=== PATIENT | male | born 1950 | race Caucasian/White ===

== ENCOUNTER 2024-06-01 06:42 | Emergency (ER) | payer OTHER, SELFPAY ==
[2024-06-01 06:47] VITALS: BP 139/97; PULSE 103; RESP 18; TEMP 36.7; O2SAT 98; BMI 31.5
[2024-06-01 07:36] LABS: MANUAL DIFF FLAG NO
[2024-06-01 07:44] LABS: Basophils Percent Auto 0.3 % (0-2); Eosinophils Percent Auto 0.2 % (0-4); Hematocrit 47.9 % (42.0-52.0); Hemoglobin 16.6 g/dl (14.0-18.0); Imm Gran Abs Auto 0.04 X10*3/uL (0.00-0.03); Imm Gran Pct Auto 0.4 % (0.0-0.4); Lymphocytes Percent Auto 10.3 % (20-40); Mean Corpuscular HGB Conc 34.7 g/dl (31.0-36.0); Mean Corpuscular Hemoglobin 31.1 pg (27.0-33.0); Mean Corpuscular Volume 89.7 fL (80.0-98.0); Mean Platelet Volume 9.3 fL (9.4-12.4); Monocytes Absolute Auto 0.7 X10*3/uL (0.1-1.2); Monocytes Percent Auto 6.8 % (2-11); Neutrophils Absolute Auto 8.1 x10*3/uL (2.0-8.3); Platelet Count 192 X10*3/uL (160-400); Red Blood Count 5.34 X10*6/uL (4.60-5.80); White Blood Count 9.9 X10*3/uL (4.8-10.8)
[2024-06-01 07:58] LABS: Alanine Aminotransferase 27 U/L (0-40); Albumin Level 4.4 g/dL (3.5-5.0); Alkaline Phosphatase 69 U/L (39-117); Anion Gap 13 (12-20); Aspartate Amino Transferase 22 U/L (5-37); Bilirubin Total 0.5 mg/dL (0.0-1.0); Blood Urea Nitrogen 18 mg/dL (9-16); Calcium 9.3 mg/dL (8.4-10.2); Carbon Dioxide 22 mmol/L (22-29); Chloride 109 mmol/L (96-108); Creatinine Clr Calc Pharmacy 75.8; Estimated Glomerular Filt Rate > 60; Glucose Random 103 mg/dL (60-115); Lipase 31 U/L (8-78); Magnesium 1.9 mg/dL (1.6-2.6); Potassium 3.7 mmol/L (3.3-5.1); Sodium 140 mmol/L (135-145); Total Protein 7.6 g/dL (6.5-8.0)
== END 2024-06-01 13:45 | disposition left against medical advice (07) ==
PROVIDERS: Physician Assistant; Emergency Provider Emergency Medicine
DX: R10.33 Periumbilical pain (principal); Z53.21 Procedure and treatment not carried out due to patient leaving prior to being seen by health care provider
CPT/HCPCS: 36415; 80053; 83690; 83735; 85025; 99202; 99281

== ENCOUNTER 2024-06-01 14:29 | Outpatient (AMB) | payer MEDICARE, OTHER, SELFPAY ==
--- NOTE | 2024-06-01 14:30 | MHC.OFFVIS ---
Vital Signs 06/01/24 14:32 Height 5 ft 6 in Weight 195 lb BMI 31.5 BP 139/97 H Blood Pressure Location Rt brachial Position Sitting Pulse 103 H Intake Visit Reasons: ? Hernia Intake Note: Patient scheduled after being seen at ED. Patient c/o: abdominal pain since Saturday morning. Detail Supervisor Required: No Accompanied by: daughter Emerita Allergies bee pollen [bee stings] Allergy (Verified 06/01/24 14:35) Unknown Penicillins Allergy (Verified 06/01/24 14:35) Unknown zinc Allergy (Verified 06/01/24 14:35) Unknown HPI Comments Details: Patient presents with his daughter. He was seen emergency department with a proximally 2 day history of incarcerated umbilical hernia. He left the ER because of the many our weight. He now presents in the office here and describes umbilical pain and some redness at the site of his longstanding umbilical hernia. Prior to this he was tolerating diet. Having regular bowel habits. Patient was very active. No other antecedent GI issues or complaints. Chart was reviewed and patient evaluate [facility] Medical History (Updated 06/01/24 @ 14:39 by CAMPBELL Grissom) Pneumonia COPD (chronic obstructive pulmonary disease) Neuropathic arthritis Arthritis Hearing aid worn HTN (hypertension) Surgical History (Updated 06/01/24 @ 15:05 by Arjun Hall MD) Previous back surgery Social History (Updated 06/01/24 @ 14:40 by CAMPBELL Grissom) Alcohol intake: former Patient Tobacco Use Status: Former Tobacco user Physical Exam Vital Signs: Last Vital Signs Pulse 103 H 06/01/24 14:32 BP 139/97 H 06/01/24 14:32 BMI result Body Mass Index 31.5 Chest Other: Chest breath sounds bilaterally, HS 1 in 2 GI Other: Patient was examined both supine and standing with Valsalva. Bilateral groin exam negative. Abdomen corpulent, soft, patient has an incarcerated umbilical hernia with some overlying erythema. This is highly probably omentum which is stuck in the hernia. If it were bowel, patient would have much more symptomatic GI issues. Defect measures roughly 3 cm Assessment & Plan Assessment & Plan (1) Incarcerated umbilical hernia: Code(s): K42.0 - Umbilical hernia with obstruction, without gangrene Category: Surgical Plan Explained to him the incarcerated in nature this omentum prompt more urgent surgery then he did not have this. Risks, benefits, and alternatives of open umbilical hernia repair with possible mesh reviewed with the patient and included but not limited to bleeding, infection, recurrence, numbness, pain, scarring, bowel injury and the patient wishes to proceed. Arrangements were made for this ulcerative then later this week if possible. All questions answered. Coding Level of Care Code New Pt Level 5 (02784) Diagnoses Incarcerated umbilical hernia K42.0
[2024-06-01 14:32] VITALS: BP 139/97; PULSE 103; BMI 31.5
--- OUTSIDE RECORDS SUMMARY | 2024-06-01 18:26 | XMS_ITS ---
Author Organization [facility] Address [address] [facility] [place] [address] Care Team Providers Care Hot Bread Baker Name Role Phone Ras Pete Unavailable [phone] ALLERGIES, ADVERSE REACTIONS, ALERTS Substance Code Code System Type Reaction Severity Status Start Date End Date Penicillins RxNorm Drug allergy () 0 MEDICATIONS Medication Code Code System Start Date Stop Date Route Dosage Directions Fill Instructions albuterol sulfate 0 RxNorm inhalation lisinopril 0 RxNorm oral simvastatin 0 RxNorm oral PROBLEMS Problem Name Code Code System Start Date End Date Stat us Essential (primary) hypertension 48119281 [facility] Active Pure hypercholesterolemia, unspecified 66443722 [facility] Active Unspecified asthma 420481672 [facility] A ctive Nasal congestion 15466469 [facility] 01/03/2024 Act morteza Chest pain on breathing 932543674 [facility] 01/03/2024 Active ENCOUNTERS Encounter Diagnosis Code Code System Date Stat us Nasal congestion 51388594 [facility] 01/03/2024 Active Chest pain on breathing 308307326 [facility] 01/03/2024 A ctive IMMUNIZATIONS * None VITAL SIGNS Code Code System Vitals Name Date Value and Un its 8462-4 [facility] Blood Pressure-Diastolic 01/03/2024 85 mmHg 8480-6 [facility] Blood Pressure-Systolic 01/03/2024 1 33 mmHg 8867-4 [facility] Heart Rate 01/03/2024 81 /min 9279-1 [facility] Respiratory Rate 01/03/2024 16 /min 8310-5 [facility] Body Temperature 01/03/2024 97.1 F 81297-0 [facility] Oxygen Saturation 01/03/2024 95 % SOCIAL HISTORY * None PROCEDURES Code Code System Procedure Date Status Notes 17758 Cpt4 Pulse Oximetry 01/03/2024 completed Ras Pete - 01/03/2024 Trending O2 was 95% and P was 104. RESULTS Test Code Code System Description Result Value Date Ref erence Range Loinc SARS-CoV-2 Not Detected 01/03/2024 Not De tected Loinc Flu A Not Detected 01/03/2024 Not Det ected Loinc Flu B Not Detected 01/03/2024 Not Det ected 80696-1 [facility] D-Dimer TNP 01/03/2024 UNLOINC Loinc Request Problem TNP 01/03/2024 MEDICAL EQUIPMENT * Patient has no history of implantable devices ASSESSMENT Assessment Please go directly to the la b to have the blood test drawn. We will contact you as soon as we have results.If symptoms worsen, you develop a fever, shortness of breath, or any other new, concerning symptoms please go to the ER. TREATMENT PLAN Type Description Date APPOINTMENT If not feeling paloma r in 3 day(s), please see your primary care physician. If you do not have a primary care physician, please return to this clinic. 01/03/2024 Labs Tests Test Name Code Code System Date Yahaira/Cepheid SARS-CoV-2 & Fl u A/B Multiplex Assay, Amplified Probe Molecular RT-PCR / NAAT 75911 CPT 01/03/2024 D-Dimer 22311 CPT 01/03/2024 D-Dimer 45707 CPT 01/03/2024 Request Problem CPT 01/06/2024 GOALS * None HEALTH CONCERNS * No Health Concerns FUNCTIONAL AND COGNITIVE STATUS * None CONSULTATION NOTES * None DISCHARGE SUMMARY NOTES * None HISTORY AND PHYSICAL NOTES * None IMAGING NOTES * /Eastern History: L sided pleuritic pain x2 daysFRONTAL AND LATERAL CXRREFERENCES:None FINDINGS:Cardiac and mediastinal contours are within expected limits. The thoracic aorta is atherosclerotic and tortuous.There are subtle peripheral airspace opacities, probably ground glass interstitial airspace opacities, greatest within the inferior lingula. No pleural effusions. No pneumothorax.IMPRESSION:Subtle airspace opacities within the lower lungs, which may represent atypical pneumonia. Recommend correlation with patient's history and clinical symptomatology. Evaluation with CT of the chest may help to further evaluate, if clinically necessary. LABORATORY REPORT NARRATIVE NOTES * None PATHOLOGY REPORT NARRATIVE NOTES * None PROGRESS NOTES * None
== END 2024-06-01 14:59 | disposition home or self-care (01) ==
PROVIDERS: PCP Internal Medicine; Visit Provider Surgery
DX: K42.0 Umbilical hernia with obstruction, without gangrene (principal)
CPT/HCPCS: 99204

== ENCOUNTER 2024-06-04 10:58 | Day surgery (SDC) | payer OTHER, SELFPAY ==
--- OUTSIDE RECORDS SUMMARY | 2024-06-01 19:46 | XMS_ITS ---
Author Organization [facility] Address [address] [facility] [place] [address] Care Team Providers Care Army Ranger Name Role Phone Ras Pete Unavailable [phone] ALLERGIES, ADVERSE REACTIONS, ALERTS Substance Code Code [...] End Date Stat us Essential (primary) hypertension 01384067 [facility] Active Pure hypercholesterolemia, unspecified 68122755 [facility] Active Unspecified asthma 862994158 [facility] A ctive Nasal congestion 43932348 [facility] 01/03/2024 Act morteza Chest pain on breathing 857820284 [facility] 01/03/2024 Active ENCOUNTERS Encounter Diagnosis Code Code System Date Stat us Nasal congestion 52335998 [facility] 01/03/2024 Active Chest pain on breathing 696950061 [facility] 01/03/2024 A ctive IMMUNIZATIONS * None VITAL SIGNS Code Code System Vitals Name Date Value and Un its 8462-4 [facility] Blood Pressure-Diastolic 01/03/2024 85 mmHg 8480-6 [facility] Blood Pressure-Systolic 01/03/2024 1 33 mmHg 8867-4 [facility] Heart Rate 01/03/2024 81 /min 9279-1 [facility] Respiratory Rate 01/03/2024 16 /min 8310-5 [facility] Body Temperature 01/03/2024 97.1 F 78685-8 [facility] Oxygen Saturation 01/03/2024 95 % SOCIAL HISTORY * None PROCEDURES Code Code System Procedure Date Status Notes 16156 Cpt4 Pulse Oximetry 01/03/2024 completed Ras Pete - 01/03/2024 Trending O2 was 95% and P was 104. RESULTS Test Code Code System Description Result Value Date Ref erence Range Loinc SARS-CoV-2 Not Detected 01/03/2024 Not De tected Loinc Flu A Not Detected 01/03/2024 Not Det ected Loinc Flu B Not Detected 01/03/2024 Not Det ected 78930-1 [facility] D-Dimer TNP 01/03/2024 UNLOINC Loinc Request [...] Assay, Amplified Probe Molecular RT-PCR / NAAT 60154 CPT 01/03/2024 D-Dimer 83449 CPT 01/03/2024 D-Dimer 60609 CPT 01/03/2024 Request Problem CPT 01/06/2024 GOALS [...]
--- OUTSIDE RECORDS SUMMARY | 2024-06-01 19:46 | XMS_ITS ---
Author Organization [facility] Address [address] [facility] [place] [address] Care Team Providers Care Information Security Systems Instructor Name Role Phone Ras Pete Unavailable [phone] ALLERGIES, ADVERSE REACTIONS, ALERTS Substance Code Code [...] End Date Stat us Essential (primary) hypertension 91187600 [facility] Active Pure hypercholesterolemia, unspecified 09939874 [facility] Active Unspecified asthma 897972875 [facility] A ctive Nasal congestion 87059560 [facility] 01/03/2024 Act morteza Chest pain on breathing 771070804 [facility] 01/03/2024 Active ENCOUNTERS Encounter Diagnosis Code Code System Date Stat us Nasal congestion 06946068 [facility] 01/03/2024 Active Chest pain on breathing 736708902 [facility] 01/03/2024 A ctive IMMUNIZATIONS * None VITAL SIGNS Code Code System Vitals Name Date Value and Un its 8462-4 [facility] Blood Pressure-Diastolic 01/03/2024 85 mmHg 8480-6 [facility] Blood Pressure-Systolic 01/03/2024 1 33 mmHg 8867-4 [facility] Heart Rate 01/03/2024 81 /min 9279-1 [facility] Respiratory Rate 01/03/2024 16 /min 8310-5 [facility] Body Temperature 01/03/2024 97.1 F 88365-4 [facility] Oxygen Saturation 01/03/2024 95 % SOCIAL HISTORY * None PROCEDURES Code Code System Procedure Date Status Notes 69722 Cpt4 Pulse Oximetry 01/03/2024 completed Ras Pete - 01/03/2024 Trending O2 was 95% and P was 104. RESULTS Test Code Code System Description Result Value Date Ref erence Range Loinc SARS-CoV-2 Not Detected 01/03/2024 Not De tected Loinc Flu A Not Detected 01/03/2024 Not Det ected Loinc Flu B Not Detected 01/03/2024 Not Det ected 72168-0 [facility] D-Dimer TNP 01/03/2024 UNLOINC Loinc Request [...] Assay, Amplified Probe Molecular RT-PCR / NAAT 05680 CPT 01/03/2024 D-Dimer 08725 CPT 01/03/2024 D-Dimer 58920 CPT 01/03/2024 Request Problem CPT 01/06/2024 GOALS [...]
--- NOTE | 2024-06-03 09:59 | MHC.SHP ---
Pre-Procedural Eval Section A - 24 Hr Update-Section A only Date of Service: 06/03/24 The patient is an INPATIENT: No Changes since office visit: No Cold of Flu in the past 2 weeks, No New Medical Problems, No Changes in Medication and No Patient answered all questions Section B - Complete if H&P > 30 days Chief Complaint: Umbilical hernia with obstruction, without gangren Allergies: Allergies Allergy/AdvReac Type Severity Reaction Status Date / Time bee pollen [bee stings] Allergy Unknown Verified 06/01/24 14:35 Penicillins Allergy Unknown Verified 06/01/24 14:35 zinc Allergy Unknown Verified 06/01/24 14:35 Review of Systems Sugical H&P ROS: Negative: Constitution, Cardiovascular, Respiratory, Neurological, Psychiatric, Hem-Onc, Allergic/Immunologic, Gastrointestinal, Genitourinary, Musculoskeletal, Integumentary, Endocrine and Eyes/Ears/Nose/Throat Exam Surgical H&P Exam: Normal: HEENT, Normal: Heart, Normal: Lungs, Normal: Extremities, Normal: Abdomen, Normal: Skin and Normal: Neurological Plan I have reviewed the history and physical and performed a pertinent physical examination on my patient. No changes have occurred unless specified. Time Spent With Patient Time: Total time managing care of this patient today ____ minutes.
[2024-06-04 11:25] VITALS: BMI 32.3
[2024-06-04 11:40] VITALS: BP 154/88; PULSE 86; RESP 16; TEMP 37; O2SAT 99
[2024-06-04] MEDS: Lactated Ringers 1,000 ML 100 ML IVCONT (11:51)
--- NOTE | 2024-06-04 11:57 | HO.ANESPROP2 ---
Documented by User: Emerita Weiss NP 06/02/24 14:10 HPI - Anesthesia Eval Consult details Narrative: 73yo M for OPEN Repair Hernia Incarcerated Umbilical with mesh [facility] Active Problems Active Problems: All Active Problems Incarcerated umbilical hernia (Acute) Past Medical History Medical History (Updated 06/02/24 @ 00:01 by Background Daemon) Pneumonia COPD (chronic obstructive pulmonary disease) Neuropathic arthritis Arthritis Hearing aid worn HTN (hypertension) Surgical History Surgical History (Updated 06/04/24 @ 11:24 by Starr Renae RN) History of foot surgery H/O hand surgery Previous back surgery Social History Social History (Updated 06/01/24 @ 14:40 by CAMPBELL Grissom) Alcohol intake: former Patient Tobacco Use Status: Former Tobacco user Use of substances other than those prescribed or required for medical reasons: No Are you DNR?: No Advance Directives: No Advance Directives Information Provided: Yes Advance Directives on File: No Recently lost weight without trying: No Nutrition Risks: No Nutritional Risk Poor oral hygiene: No Meds Allergies Allergy/AdvReac Type Severity Reaction Status Date / Time bee pollen [bee stings] Allergy Anaphylaxis Verified 06/04/24 11:22 Penicillins Allergy Swelling Verified 06/04/24 11:22 zinc Allergy Rash Verified 06/04/24 11:22 Home Medications ?Medication ?Instructions ?Recorded ?Confirmed ?Last Taken ?Type simvastatin 06/04/24 06/04/24 04:00 History Exam Pertinent Lab Results Pertinent Lab Results: Laboratory Tests 06/01/24 07:33 WBC 9.9 Hgb 16.6 Hct 47.9 Plt Count 192 Sodium 140 Potassium 3.7 Chloride 109 H Carbon Dioxide 22 BUN 18 H Creatinine 0.89 Assessment and Plan Assessment Anesthesia Assessment: Chart Reviewed Documented by User: Kimberly Sutherland DO 06/04/24 11:57 PMFSH Past Medical History Medical History (Updated 06/02/24 @ 00:01 by Background Daemon) Pneumonia COPD (chronic obstructive pulmonary disease) Neuropathic arthritis Arthritis Hearing aid worn HTN (hypertension) Family History Family history of problems with anesthesia: No Surgical History Surgical History (Updated 06/04/24 @ 11:24 by Starr Renae RN) History of foot surgery H/O hand surgery Previous back surgery History of Problems with Anesthesia: No Social History Social History (Updated 06/01/24 @ 14:40 by CAMPBELL Grissom) Alcohol intake: former Patient Tobacco Use Status: Former Tobacco user Use of substances other than those prescribed or required for medical reasons: No Are you DNR?: No Advance Directives: No Advance Directives Information Provided: Yes Advance Directives on File: No Recently lost weight without trying: No Nutrition Risks: No Nutritional Risk Poor oral hygiene: No Meds Allergies Allergy/AdvReac Type Severity Reaction Status Date / Time bee pollen [bee stings] Allergy Anaphylaxis Verified 06/04/24 11:22 Penicillins Allergy Swelling Verified 06/04/24 11:22 zinc Allergy Rash Verified 06/04/24 11:22 Home Medications ?Medication ?Instructions ?Recorded ?Confirmed ?Last Taken ?Type simvastatin 06/04/24 06/04/24 04:00 History Exam Exam Date and Time: 06/04/24 1155 Height,Weight and Vital Signs: Height 5 ft 6 in Weight 90.718 kg Vital Signs Temperature 98.6 F 06/04/24 11:40 Pulse Rate 86 06/04/24 11:40 Respiratory Rate 16 06/04/24 11:40 Blood Pressure 154/88 H 06/04/24 11:40 Pulse Oximetry 99 06/04/24 11:40 Oxygen Delivery Method Room Air 06/04/24 11:40 Temperature 98.6 F 06/04/24 11:40 Pulse Rate 86 06/04/24 11:40 Respiratory Rate 16 06/04/24 11:40 Blood Pressure 154/88 H 06/04/24 11:40 Pulse Oximetry 99 06/04/24 11:40 Oxygen Delivery Method Room Air 06/04/24 11:40 Airway Mallampati Class: II TM Dist: >3cm Neck ROM: Full Denture: Upper Heart: S1S2 Lungs: CTAB Assessment and Plan Assessment Anesthesia Assessment: Anesthesia Plan Discussed and Chart Reviewed Final Anesthetic Review Family History of Problems with Anesthesia: No History of Problems with Anesthesia: No NPO: Yes ASA Class: II Final Preanesthetic Review: No Changes in Pt Med Stat, Meds/Allgs Chart Reviewed, Consent Obtained/Reviewed and Anes Risks/Benef Reviewed Patient Risk: Low Procedure Risk: Low Anesthetic Plan Anesthetic Plan: MAC: and Agree w/ Assess. and Plan Disposition: Standard PACU
--- NOTE | 2024-06-04 12:43 | W.PM.OPN ---
Operative Note Operative Note Date of Service: 06/04/24 Narrative: Preoperative diagnosis: [] Incarcerated strangulated umbilical hernia with omentum Postop diagnosis: [] The same Procedure [] open umbilical herniorrhaphy with Bard mesh Surgeon: [] Rafael Research Tech: [] Nick Type of Anesthesia: [] Mac Indication for surgery: [] Patient had a roughly 4 cm incarcerated umbilical hernia with a knuckle of omentum which was incarcerated and strangulated. Patient had some overlying umbilical abdominal wall erythema as well. Corpulent abdomen. Findings: [] Patient brought to the operating room, placed on operative table supine position, after an adequate level of MAC anesthesia was induced, the patient's abdomen is prepped and draped in usual sterile fashion using a supraumbilical curvilinear incision, this carried down through skin, subcutaneous tissue were a large hernia sac was identified and circumferentially dissected away from the posterior aspect of the umbilicus down through the fascia. Sac was opened were a knuckle of incarcerated strangulated omentum was identified. This was amputated using Bovie. Hernia sac was also amputated using Bovie. Fascia margins were circumferentially cleared. A Bard mesh was placed in the defect, and the superficial layer of the mesh was circumferentially sutured to the surrounding fascia using interrupted 0 Ethibond suture. At completion of procedure, mesh was in good position with no gaps or tension. Wound was irrigated with Betadine impregnated saline, secured hemostasis, and closed in the following manner; posterior aspect of the umbilicus was tacked to the wound floor using interrupted 3-0 Vicryl sutures. Skin was closed using interrupted inverted dermal 3-0 Vicryl sutures followed by Steri-Strips and sterile dressings. Wound was infiltrated at the beginning at the end with 0.5% Marcaine/1% lidocaine. Sponge, needle, and instrument counts were reported correct. Patient tolerated the procedure well and emerged from anesthesia stable condition. EBL minimal
[2024-06-04 12:57] VITALS: BP 128/77; PULSE 75; RESP 16; TEMP 36.6; O2SAT 97
[2024-06-04 13:12] VITALS: BP 125/74; PULSE 74; RESP 16; O2SAT 94
[2024-06-04] MEDS: oxyCODONE HCl Immed Release 5 MG TABLET PO (13:21)
[2024-06-04 13:27] VITALS: BP 137/86; PULSE 71; RESP 20; TEMP 36.6; O2SAT 97
--- OUTSIDE RECORDS SUMMARY | 2024-06-04 13:58 | XMS_ITS ---
Author Organization [facility] Address [address] [facility] [place] [address] Care Team Providers Care Associate Research Scientist Name Role Phone Ras Pete Unavailable [phone] ALLERGIES, ADVERSE REACTIONS, ALERTS Substance Code Code [...] End Date Stat us Essential (primary) hypertension 70926020 [facility] Active Pure hypercholesterolemia, unspecified 05725606 [facility] Active Unspecified asthma 522518248 [facility] A ctive Nasal congestion 42800572 [facility] 01/03/2024 Act morteza Chest pain on breathing 873554581 [facility] 01/03/2024 Active ENCOUNTERS Encounter Diagnosis Code Code System Date Stat us Nasal congestion 69586751 [facility] 01/03/2024 Active Chest pain on breathing 153727059 [facility] 01/03/2024 A ctive IMMUNIZATIONS * None VITAL SIGNS Code Code System Vitals Name Date Value and Un its 8462-4 [facility] Blood Pressure-Diastolic 01/03/2024 85 mmHg 8480-6 [facility] Blood Pressure-Systolic 01/03/2024 1 33 mmHg 8867-4 [facility] Heart Rate 01/03/2024 81 /min 9279-1 [facility] Respiratory Rate 01/03/2024 16 /min 8310-5 [facility] Body Temperature 01/03/2024 97.1 F 46361-7 [facility] Oxygen Saturation 01/03/2024 95 % SOCIAL HISTORY * None PROCEDURES Code Code System Procedure Date Status Notes 12483 Cpt4 Pulse Oximetry 01/03/2024 completed Ras Pete - 01/03/2024 Trending O2 was 95% and P was 104. RESULTS Test Code Code System Description Result Value Date Ref erence Range Loinc SARS-CoV-2 Not Detected 01/03/2024 Not De tected Loinc Flu A Not Detected 01/03/2024 Not Det ected Loinc Flu B Not Detected 01/03/2024 Not Det ected 38492-9 [facility] D-Dimer TNP 01/03/2024 UNLOINC Loinc Request [...] Assay, Amplified Probe Molecular RT-PCR / NAAT 08155 CPT 01/03/2024 D-Dimer 78573 CPT 01/03/2024 D-Dimer 12688 CPT 01/03/2024 Request Problem CPT 01/06/2024 GOALS [...]
--- OUTSIDE RECORDS SUMMARY | 2024-06-04 13:59 | XMS_ITS ---
Author Organization [facility] Address [address] [facility] [place] [address] Care Team Providers Care Trains Service Conductor Name Role Phone Ras Pete Unavailable [phone] ALLERGIES, ADVERSE REACTIONS, ALERTS Substance Code Code [...] End Date Stat us Essential (primary) hypertension 30570285 [facility] Active Pure hypercholesterolemia, unspecified 18189274 [facility] Active Unspecified asthma 003227594 [facility] A ctive Nasal congestion 76669364 [facility] 01/03/2024 Act morteza Chest pain on breathing 006777043 [facility] 01/03/2024 Active ENCOUNTERS Encounter Diagnosis Code Code System Date Stat us Nasal congestion 26859950 [facility] 01/03/2024 Active Chest pain on breathing 238115831 [facility] 01/03/2024 A ctive IMMUNIZATIONS * None VITAL SIGNS Code Code System Vitals Name Date Value and Un its 8462-4 [facility] Blood Pressure-Diastolic 01/03/2024 85 mmHg 8480-6 [facility] Blood Pressure-Systolic 01/03/2024 1 33 mmHg 8867-4 [facility] Heart Rate 01/03/2024 81 /min 9279-1 [facility] Respiratory Rate 01/03/2024 16 /min 8310-5 [facility] Body Temperature 01/03/2024 97.1 F 38548-6 [facility] Oxygen Saturation 01/03/2024 95 % SOCIAL HISTORY * None PROCEDURES Code Code System Procedure Date Status Notes 84366 Cpt4 Pulse Oximetry 01/03/2024 completed Ras Pete - 01/03/2024 Trending O2 was 95% and P was 104. RESULTS Test Code Code System Description Result Value Date Ref erence Range Loinc SARS-CoV-2 Not Detected 01/03/2024 Not De tected Loinc Flu A Not Detected 01/03/2024 Not Det ected Loinc Flu B Not Detected 01/03/2024 Not Det ected 99606-9 [facility] D-Dimer TNP 01/03/2024 UNLOINC Loinc Request [...] Assay, Amplified Probe Molecular RT-PCR / NAAT 39155 CPT 01/03/2024 D-Dimer 01147 CPT 01/03/2024 D-Dimer 80448 CPT 01/03/2024 Request Problem CPT 01/06/2024 GOALS [...]
== END 2024-06-04 14:10 | disposition home or self-care (01) ==
PROVIDERS: PCP Family Medicine; Visit Provider Surgery
PROC: (CPT 49594; principal; 2024-06-04 13:10)
DX: K42.0 Umbilical hernia with obstruction, without gangrene (principal); E65 Localized adiposity; I10 Essential (primary) hypertension; M14.60 Charcot's joint, unspecified site; J44.9 Chronic obstructive pulmonary disease, unspecified; Z87.01 Personal history of pneumonia (recurrent); Z97.4 Presence of external hearing-aid; Z88.0 Allergy status to penicillin; Z87.891 Personal history of nicotine dependence; Z98.890 Other specified postprocedural states
CPT/HCPCS: 49594; 88304; C1781; J0131; J0736; J1100; J2003; J2250; J2704; J2795; J3010

== ENCOUNTER → 2024-06-04 10:58 | Outpatient (BNV) | payer OTHER, SELFPAY | PROVIDERS: PCP Family Medicine; Visit Provider Surgery | DX: K42.0 Umbilical hernia with obstruction, without gangrene (principal) | CPT/HCPCS: 49616 ==

== ENCOUNTER 2024-06-15 11:11 | Outpatient (AMB) | payer OTHER, SELFPAY ==
--- NOTE | 2024-06-15 11:13 | A.OFFVIS_ITS ---
Intake Visit Reasons: S/P incarcerated umbilical hernia w/mesh Intake Note: Patient here s/p open umbilical herniorrhaphy with Bard mesh. Reports incision healing well. Patient c/o: no concerns. No longer taking rx pain meds. Surgery: 06-04-2024 Post Graduate Intern Required: No Accompanied by: service dog Allergies bee pollen [bee stings] Allergy (Verified 06/15/24 11:16) Anaphylaxis Penicillins Allergy (Verified 06/15/24 11:16) Swelling zinc Allergy (Verified 06/15/24 11:16) Rash HPI Comments Details: Patient presents for follow-up. He is doing quite well. Starting a diet. Having regular bowel habits. He is increasing his activity level. Patient has minimal incisional discomfort [facility] Medical History (Updated 06/02/24 @ 00:01 by Lorraine Guerra) Pneumonia COPD (chronic obstructive pulmonary disease) Neuropathic arthritis Arthritis Hearing aid worn HTN (hypertension) Surgical History (Updated 06/15/24 @ 11:20 by Arjun Hall MD) Incarcerated umbilical hernia (06/04/24) History of foot surgery H/O hand surgery Previous back surgery Social History (Updated 06/01/24 @ 14:40 by CAMPBELL Grissom) Alcohol intake: former Comment: medicated Patient Tobacco Use Status: Former Tobacco user Physical Exam GI Other: Abdomen corpulent, soft. Incision clean dry and intact healing very well Assessment & Plan Assessment & Plan (1) Status post umbilical hernia repair, follow-up exam: Code(s): Z09 - Encounter for follow-up examination after completed treatment for conditions other than malignant neoplasm Category: Medical Plan Patient was been given local instructions, including avoiding strenuous activiti es next few weeks time and will otherwise follow-up p.r.n.. All questions answered. Medications: Discontinued hydrocodone-acetaminophen 5-325 mg Partial Fill upon patient request. Discontinued Reason: Patient no longer taking 1 tab PO Q4-6H PRN 30 tabs 0RF pain Coding Level of Care Code Global (08112) Diagnoses Status post umbilical hernia repair, follow-up exam Z09
== END 2024-06-15 11:29 | disposition home or self-care (01) ==
PROVIDERS: PCP Family Medicine; Visit Provider Surgery
DX: K42.0 Umbilical hernia with obstruction, without gangrene (principal); Z09 Encounter for follow-up examination after completed treatment for conditions other than malignant neoplasm
CPT/HCPCS: 99212

== ENCOUNTER → 2024-06-15 11:11 | Outpatient (BNVA) | payer OTHER, SELFPAY | PROVIDERS: PCP Family Medicine; Visit Provider Surgery | CPT/HCPCS: 99212 ==